=== PATIENT | male | born 1980 | race Caucasian/White ===

== ENCOUNTER 2020-04-27 08:42 | Day surgery (SDC) | payer OTHER ==
[2020-04-27] VITALS (12 sets, daily range): BP systolic 126–151; BP diastolic 79–124; PULSE 59–74; TEMP 98.1
[~2020-04-27] VITALS: Ht 175.3 cm; Wt 124.0 kg
[2020-04-27 09:57] LABS: HEMATOCRIT 42.8 % (42.0-52.0); HEMOGLOBIN 14.4 g/dl (13.5-18.0); MEAN CELL VOLUME 85 fl (80.0-100.0); MEAN CORPUSCULAR HEMOGLOBIN 29 pg (27.0-31.0); MEAN CORPUSCULAR HGB CONC 34 g/dl (33.0-37.0); MEAN PLATELET VOLUME 9.5 fl (7.4-10.4); PLATELET COUNT 275 K/mm3 (130-400); RED BLOOD COUNT 5.01 M/mm3 (4.20-5.60); REDCELL DISTRIBUTION WIDTH-CV 13.3 % (11.5-14.5)
[2020-04-27 10:01] LABS: PROTHROMBIN TIME 11.6 SECONDS (9.7-12.8)
[2020-04-27 10:04] LABS: PARTIAL THROMBOPLASTIN TIME 32.9 SECONDS (26.0-37.0)
[2020-04-27 10:08] LABS: CALCIUM 8.8 mg/dL (8.4-10.2); CREATININE, serum 0.84 (0.66-1.25); POTASSIUM 4.1 mmol/L (3.4-5.0)
[2020-04-27] MEDS ORDERED: ATARAX 10MG10 MG/TAB PO (10:26)
[2020-04-27] MEDS ORDERED: NEURONTIN300 MG/CAP PO (10:27)
[2020-04-27] MEDS ORDERED: LOTREL 5/20 CAP1 CAP PO (10:27)
--- NOTE | 2020-04-27 11:39 | NUR ---
SEE MEREGE FOR ALL MEDICATION ADMIN. TIMES, INTRA AND POST SEDATION ASSESSMENTS
--- NOTE | 2020-04-27 12:33 | NUR ---
Patient returned from procedure,report from Gabby Greene.patient complains of pain rated at a 7 on 0-10 [address]Dr nelson notified by Gabby Greene.Order received.Will continue to monitor.
--- NOTE | 2020-04-27 12:50 | NUR ---
Fentanyl 25 mccg IV slowly for c/o pain in right wrist rated at a 7.Nitro drip started by ICU charge nurse at 10mcg/min.Patient awake,alert and orientated x 3,respirations even and unlabored.
--- NOTE | 2020-04-27 13:00 | NUR ---
Per pt report pain at a 1 on 0-10 scale in right wrist at this time.Pt resting,requesting lunch.Lunch ordered.
--- NOTE | 2020-04-27 15:30 | NUR ---
Nitro stopped for planned discharge.Pt denies needs,denies pain at this time.
--- NOTE | 2020-04-27 15:55 | NUR ---
Discharge instructions given to pt.pt verbalizes understanding.INT remove,catheter tip intact.Pt escorted out via wheelchair by this nurse.
== END 2020-04-27 16:43 | disposition home or self-care (01) ==
LOC: COL.CAR 08:42
PROVIDERS: Internal Medicine Cardiovascular Disease
DX: R07.9 Chest pain, unspecified (principal); E78.5 Hyperlipidemia, unspecified; I10 Essential (primary) hypertension; F17.210 Nicotine dependence, cigarettes, uncomplicated; I34.0 Nonrheumatic mitral (valve) insufficiency; Z20.828 Contact with and (suspected) exposure to other viral communicable diseases
CPT/HCPCS: J1644; J2250; J3010